=== PATIENT | male | born 1990 | race African-American/Black ===

== ENCOUNTER → 2024-02-15 13:55 | Outpatient (CLI) | payer OTHER, SELFPAY ==
--- NOTE | 2024-02-15 13:57 | DI.CT.S_ITS ---
PROCEDURE: CT CHEST W CON INDICATIONS: SUPRACLAVICULAR MASS, FIRM, IMMOBILE TECHNIQUE: After the administration of intravenous contrast, 5 mm thick sections acquired from the pulmonary apices to the posterior costophrenic angles. 1 mm axial lung, 5 mm thick coronal and sagittal reformats and 7 mm axial MIP were acquired. For radiation dose reduction, the following was used: automated exposure control, adjustment of mA and/or kV according to patient size. COMPARISON: None. FINDINGS: Image quality: Diagnostic. Lower Neck: No enlarged lymph nodes. Thyroid: No thyroid nodules which require sonographic follow up, per consensus guidelines. Axillae: No enlarged lymph nodes. Chest Wall: Unremarkable. A small metallic surface marker was placed on the area of soft tissue clinical concern, right anterolateral supraclavicular fossa surface at an axial level that correlates with the thyroid cartilage deeper within the soft tissues of the neck. A solid mass, calcification or cyst is not seen in that area by CT appearance. Bones: Unremarkable. Lungs and Pleura: No pneumothorax or pleural effusions. No consolidation or suspicious nodules. Heart: Heart size is normal. No pericardial effusion. Thoracic Vessels: The aorta and pulmonary arteries demonstrate normal size. Mediastinum and Charity: No enlarged lymph nodes. Esophagus: No wall thickening. No hiatal hernia. Upper Abdomen: Visualized upper abdomen solid organs and bowel loops appear normal. IMPRESSION: Normal examination. The area of clinical concern appears to be very small, marked by a metallic surface marker for the purposes of identification on this current CT scanning. Continue close clinical follow-up is recommended and also high-resolution surface ultrasound scanning may assist in detecting a source of this clinical finding that is below the resolution for CT detection. Dictated by: Panfilo Maxwell M.D. on 02/15/2024 at 15:13 Approved by: Panfilo Maxwell M.D. on 02/15/2024 at 15:17
--- NOTE | 2024-02-15 13:58 | DI.CT.S_ITS ---
PROCEDURE: CT SOFT TISSUE NECK W CON INDICATIONS: SUPRACLAVICULAR MASS, FIRM, IMMOBILE TECHNIQUE: After the administration of intravenous contrast, 3.0 mm axial sections acquired from the sella to the aortic arch. Additional oblique axial 3.0 mm sections acquired through the pharynx. 3 mm thick coronal and sagittal reformats were generated. For radiation dose reduction, the following was used: automated exposure control. COMPARISON: [facility], CT, CT CHEST W CON, 02/15/2024, 14:04. FINDINGS: Image quality: Excellent. Lymph nodes: No enlarged lymph nodes seen throughout the neck. Vessels: Visualized vasculature appears patent. Neck spaces: The area of clinical concern is marked within the right supraclavicular region, as on series 2, image 49. Within this region, there is mild superficial dermal thickening, as on series 4, image 24. No coreen soft tissue masses can be seen. The oropharynx, nasopharynx, and pharynx demonstrate no mucosal lesions. The vocal cords, false vocal cords, pyriform sinuses, epiglottis, vallecula, and tongue base all appear normal. Extramucosal spaces appear unremarkable. Glands: The parotid and submandibular glands appear normal. Thyroid gland demonstrates no significant abnormality. Miscellaneous: Visualized brain and orbits appear normal. Lung apices appear clear. Superficial soft tissues appear normal. Bones: No suspicious bony lesions. Visualized sinuses and mastoids appear unremarkable. IMPRESSION: Skin thickening can be seen at the site of clinical concern, without a coreen soft tissue mass or enlarged lymph node. Dictated by: Javier Bhatti M.D. on 02/15/2024 at 15:07 Approved by: Javier Bhatti M.D. on 02/15/2024 at 15:10
== END ==
PROVIDERS: Referring Provider Preventive Medicine Aerospace Medicine; Visit Provider Preventive Medicine Aerospace Medicine
DX: R22.1 Localized swelling, mass and lump, neck (principal)
CPT/HCPCS: 70491; 71260; Q9967